=== PATIENT | male | born 1955 | race Caucasian/White ===

== ENCOUNTER 2025-01-20 13:08 | Outpatient (REF) | payer MEDICARE, BC, SELFPAY ==
[2025-01-20 18:48] LABS: Ferritin 171 ng/mL (20-250)
[2025-01-20 18:55] LABS: Folate 16.0 ng/mL (> or = 4.0); Vitamin B12 752 pg/mL (200-900)
[2025-01-27 16:08] LABS: Vitamin D 25-OH, D2 <4 ng/mL; Vitamin D 25-OH, D3 49 ng/mL; Vitamin D 25-OH, Total 49 ng/mL (30-100)
== END 2025-01-20 13:09 | disposition home or self-care (01) ==
LOC: HO.HKASLDS 13:08
PROVIDERS: PCP Pediatrics; Visit Provider Psychiatry & Neurology Neurology
DX: G47.61 Periodic limb movement disorder (principal); G47.10 Hypersomnia, unspecified; R06.83 Snoring; R41.89 Other symptoms and signs involving cognitive functions and awareness; Z79.899 Other long term (current) drug therapy
CPT/HCPCS: 36415; 82306; 82607; 82728; 82746; 99202

== ENCOUNTER 2025-01-20 13:08 | Outpatient (AMB) | payer MEDICARE, BC, SELFPAY ==
--- NOTE | 2025-01-20 13:12 | MHC.OFFVIS ---
Vital Signs 01/20/25 13:17 Height 6 ft Weight 210 lb 8 oz BMI 28.5 BP 126/80 Blood Pressure Location Rt brachial Position Sitting Pulse 59 Pulse Source Pulse Oximeter Pulse Oximetry (%) 96 Oxygen Delivery Method Room Air Intake Visit Reasons: E-FUNERAL DIRECTOR'S ASSISTANT: Restless Leg Syndrone(Need Ins Card) Intake Note: Patient referred for restless leg syndrome by [facility] [employer] Support Manager Required: No Accompanied by: Self / Same As Patient Allergies No Known Allergies Allergy (Verified 01/20/25 13:12) Medication List - Last Reconciled 01/20/25 by Stacey Perez MD acetaminophen (Tylenol Extra Strength) 1,000 mg PO Q6H PRN famotidine 40 mg PO BID gabapentin 100 mg PO DAILY ssapbqni-xayuk-nym-D3-hyaluron 2,000-1,200-500 mg/30 mL mL PO herbal complex no.239 (Whole Body Joint Support capsule) caps PO ibuprofen 200 mg PO Q6H PRN multivitamin (Super Multivitamin tablet) 1 tab PO DAILY prednisone mg PO tamsulosin 0.4 mg PO BEDTIME tizanidine mg PO zolpidem 10 mg PO BEDTIME PRN HPI Comments Details: 70y/o male comes for evaluation of restless legs and periodic limb movements. He has been having abnormal leg movements when tired for over 40 years and has been worsening.He reports abnormal leg movements at rest more in the later in the day. He feels better when he stretches or getting up and walks around Flying long distances is hard and he takes a sleeping pill. He has snoring - daytime sleepiness.He had a sleep study many years ago - 20years ago and was on dental device but is non complaint. He has chronic back issues . He was marinebiologist . He is also concerned about short term memory issues. He stopped drinking 2-3 glasses of hard liquor and stopped 2 weeks ago and he is feeling better. [facility] Medical History (Updated 01/20/25 @ 14:01 by Stacey Perez MD) Cognitive change Periodic limb movement Hypersomnia Snoring Muscle pain Multiple joint pain Osteoarthritis Bilateral leg cramps Osteoarthritis of hip Physical Exam Vital Signs: Last Vital Signs Pulse 59 01/20/25 13:17 BP 126/80 01/20/25 13:17 Pulse Ox 96 01/20/25 13:17 Oxygen Delivery Method Room Air 01/20/25 13:17 BMI result Body Mass Index 28.5 Const General: cooperative, healthy appearing and comfortable Nutritional Appearance: average body habitus Orientation/consciousness: patient oriented x3 Eyes Pupils: Equal, round and reactive pupils present Neuro General: patient oriented x3, gait normal, tone normal, moves all extremities and no focal motor deficits Cranial nerves: Yes Facial sensation intact/muscles of mastication intact, Yes Equal, round and reactive pupils present, Yes Bilaterally intact EOM present, Yes Nystagmus not present, Yes Normal facial strength present, Yes Midline tongue present, Yes Symmetric palate elevation present and Yes Ability to bilaterally elevate shoulders present Cognition (Neuro): normal cognition Gait exam (Neuro): Normal gait present Motor exam (neuro): 5/5 motor strength present throughout Deep tendon reflexes (DTR's): Right triceps reflex intensity grade: 1+, Left triceps reflex intensity grade: 1+, Rt Biceps (C5, C6): 1+, Left biceps reflex intensity grade: 1+, Right brachioradialis reflex intensity grade: 1+, Left brachioradialis reflex intensity grade: 1+, Right patellar reflex intensity grade: 1+ and Left patellar reflex intensity grade: 1+ Coordination: [id number] test normal Assessment & Plan Assessment & Plan (1) Periodic limb movement: Comment: restless legs syndrome Code(s): G47.61 - Periodic limb movement disorder Category: Medical (2) Hypersomnia: Code(s): G47.10 - Hypersomnia, unspecified Category: Medical (3) Snoring: Code(s): R06.83 - Snoring Category: Medical (4) Cognitive change: Code(s): R41.89 - Other symptoms and signs involving cognitive functions and awareness Category: Medical Plan I will evaluate him with sleep study for reevaluation of sleep apnea. He is starting his dental device today I suggested he try gabapentin 100mg 1-3 tabs qhs check ferritin, B12 and Vit D TSH CBC CMP normal MRI brain - scheudled for Feb 04 Orders: Orders RT home sleep study Today G47.10 - Hypersomnia, unspecified, G47.61 - Periodic limb movement disorder, R06.83 - Snoring Vitamin D 25-OH (D2 and D3) Today G47.10 - Hypersomnia, unspecified Vitamin B12 and Folate Today G47.10 - Hypersomnia, unspecified Ferritin Today G47.10 - Hypersomnia, unspecified Medications: New gabapentin 1-3 caps orally bedtime; 90 caps 6RF Coding Level of Care Code New Pt Level 4 (83932) Complex EM visit Add On G2211 Diagnoses Periodic limb movement G47.61 Hypersomnia G47.10 Snoring R06.83 Cognitive change R41.89
[2025-01-20 13:17] VITALS: BP 126/80; PULSE 59; O2SAT 96; BMI 28.5
--- OUTSIDE RECORDS SUMMARY | 2025-01-20 15:10 | XMS_ITS | Clinical Summary ---
Author Organization [facility] Address [address] [place] [address] Care Team Providers Care Photographer Still Name Role Phone Unavailable Primary Care Provider Unavailabl e Immunizations Immunization Administration Dates Next Due Td (adult), adsorbed 12/31/1988 Social History Tobacco Use Types Packs/Day Years Used Date Smoking Tobacco: Never Assessed Sex and Gender Information Value Date Recorded Sex Assigned at Not on file Legal Sex Male 2:42 AM EDT Gender Identity Not on file Sexual Orientation Not on file Plan of Treatment Health Maintenance Due Date Last Done Comments Hepatitis C Screening 1955 DTaP/Tdap/Td (1 - Tdap) 01/01/1989 12/31/1988 Pneumococcal 50+ years (1 of 1 - PCV) 2005 Zoster (Shingrix) (1 of 2) 2005 COVID-19 Vaccine ( - 2023-2 5 season) 2025 Influenza (#1) 2025 RSV (1 - 1-dose 75+ series) 2030 Abdominal Aorta Imaging Discontinued HPV Vaccine (No Doses Required) Completed Hep A Aged Out No longer eligi ble based on patient's age to complete this topic Hep B Aged Out No longer eligi ble based on patient's age to complete this topic Hib Aged Out No longer eligi ble based on patient's age to complete this topic Meningococcal ACWY Aged Out No longer eligible based on patient's age to complete this topic Zoster (Zostavax) Discontinued
== END 2025-01-20 14:21 | disposition home or self-care (01) ==
LOC: HO.HSMS 13:08
PROVIDERS: PCP Pediatrics; Visit Provider Psychiatry & Neurology Neurology
DX: G47.61 Periodic limb movement disorder (principal); G47.10 Hypersomnia, unspecified; R06.83 Snoring; R41.89 Other symptoms and signs involving cognitive functions and awareness
CPT/HCPCS: 99204; G2211